=== PATIENT | male | born 1990 | race African-American/Black ===

== ENCOUNTER 2017-04-27 11:18 | Emergency (ER) | payer SELFPAY ==
[~2017-04-27] VITALS: Ht 180.3 cm; Wt 92.7 kg
[~2017-04-27 11:18] MED LIST: (None)3.5 GM OP; AMOXICILLIN500 MG PO; BACTRIM DS1 TAB PO; CEPHALEXIN500 MG PO; FLEXERIL PO; GENTAMICIN15 ML/BTL OP; LORTAB 10-325 M1 TAB PO; NAPROSYN500 MG PO; ULTRAM50 M1 PO
[2017-04-27] MEDS ORDERED: BACTRIM DS1 TAB PO (11:52)
[2017-04-27] MEDS ORDERED: TRAMADOL HYDROC50 MG PO (11:52)
[2017-04-27] MEDS ORDERED: MOTRIN800 MG PO (11:52)
[2017-04-27 12:41] VITALS: BP 135/78
== END 2017-04-27 12:47 | disposition home or self-care (01) | DRG 603 ==
LOC: ED 11:18
PROC: 0H98XZZ Drainage of Buttock Skin, External Approach (ICD-10-PCS; principal; 2017-04-27)
DX: L02.31 Cutaneous abscess of buttock (principal); F17.210 Nicotine dependence, cigarettes, uncomplicated

== ENCOUNTER 2017-09-07 18:02 | Emergency (ER) | payer SELFPAY ==
[~2017-09-07] VITALS: Ht 180.3 cm; Wt 80.0 kg
[~2017-09-07 18:02] MED LIST changes: +MOTRIN800 MG PO; +TRAMADOL HYDROC50 MG PO
[2017-09-07] MEDS ORDERED: AMOXICILLIN500 MG PO (18:25)
[2017-09-07] MEDS ORDERED: PERCOCET 5/325M1 TAB PO (18:25)
[2017-09-07 18:34] VITALS: BP 167/83
== END 2017-09-07 18:40 | disposition home or self-care (01) | DRG 159 ==
LOC: ED 18:02
DX: K08.89 Other specified disorders of teeth and supporting structures (principal); F17.290 Nicotine dependence, other tobacco product, uncomplicated; K02.9 Dental caries, unspecified; S02.5XXA Fracture of tooth (traumatic), initial encounter for closed fracture

== ENCOUNTER 2018-09-26 20:58 | Emergency (ER) | payer SELFPAY ==
[~2018-09-26] VITALS: Ht 180.3 cm; Wt 90.0 kg
[~2018-09-26 20:58] MED LIST changes: +PERCOCET 5/325M1 TAB PO
[2018-09-26 22:13] LABS: HEMATOCRIT 47.3 % (39.0-50.0); HEMOGLOBIN 15.3 g/dl (14.0-18.0); IMMATURE GRANULOCYTES 0.3 % (0.0-5.0); MEAN CELL VOLUME 88.6 fL CALC (80.0-100.0); MEAN CORPUSCULAR HGB 28.7 pG CALC (26.0-32.0); MEAN CORPUSCULAR HGB CONC 32.3 g/L CALC (32.0-36.0); NEUT# 6.64 thou/uL (1.82-7.42); RED BLOOD COUNT 5.34 mill/uL (4.70-6.10); RED CELL DISTRI WIDTH 13.6 % (11.5-15.5)
[2018-09-26 23:10] VITALS: BP 124/77
== END 2018-09-26 23:14 | disposition home or self-care (01) | DRG 866 ==
LOC: ED 20:58
PROVIDERS: Family Medicine
DX: B34.9 Viral infection, unspecified (principal); R53.81 Other malaise; R05 Cough; R09.81 Nasal congestion; R51 Headache; J34.89 Other specified disorders of nose and nasal sinuses; F17.210 Nicotine dependence, cigarettes, uncomplicated

== ENCOUNTER 2019-01-14 10:43 | Emergency (ER) | payer SELFPAY ==
[~2019-01-14] VITALS: Ht 180.3 cm; Wt 65.0 kg
[2019-01-14 10:56] VITALS: BP 152/88
[2019-01-14] MEDS ORDERED: PENICILLN VK500 MG PO (11:01)
[2019-01-14] MEDS ORDERED: IBUPROFEN600 MG PO (11:01)
== END 2019-01-14 11:07 | disposition home or self-care (01) | DRG 159 ==
LOC: ED 10:43
DX: K03.81 Cracked tooth (principal); F17.200 Nicotine dependence, unspecified, uncomplicated

== ENCOUNTER 2019-01-21 20:22 | Emergency (ER) | payer SELFPAY ==
[~2019-01-21] VITALS: Wt 77.0 kg
[~2019-01-21 20:22] MED LIST changes: +IBUPROFEN600 MG PO; +PENICILLN VK500 MG PO
[2019-01-21] MEDS ORDERED: AMOXICILLIN875 MG PO (20:46)
[2019-01-22 00:01] VITALS: BP 130/80
== END 2019-01-22 00:01 | disposition home or self-care (01) | DRG 544 ==
LOC: ED 20:22
DX: M84.68XA Pathological fracture in other disease, other site, initial encounter for fracture (principal); K02.9 Dental caries, unspecified; K05.10 Chronic gingivitis, plaque induced; F17.210 Nicotine dependence, cigarettes, uncomplicated; R03.0 Elevated blood-pressure reading, without diagnosis of hypertension
CPT/HCPCS: J0561

== ENCOUNTER 2019-08-05 | Emergency (ER) | payer BC ==
[~2019-08-05] MED LIST changes: +AMOXICILLIN875 MG PO
[2019-08-05] MEDS ORDERED: IBUPROFEN600 MG PO (03:59)
[2019-08-05] MEDS ORDERED: KEFLEX500 MG PO (03:59)
== END 2019-08-05 04:14 | disposition home or self-care (01) | DRG 159 ==
DX: K02.9 Dental caries, unspecified (principal); F17.210 Nicotine dependence, cigarettes, uncomplicated

== ENCOUNTER 2020-11-08 07:41 | Emergency (ER) | payer SELFPAY ==
[~2020-11-08] VITALS: Ht 180.3 cm; Wt 70.0 kg
[~2020-11-08 07:41] MED LIST changes: +KEFLEX500 MG PO
[2020-11-08] MEDS ORDERED: AMOXICILLIN500 MG PO (09:52)
[2020-11-08] MEDS ORDERED: CLARITIN10 M1 PO (09:52)
[2020-11-08 10:00] VITALS: BP 118/70
== END 2020-11-08 10:04 | disposition home or self-care (01) | DRG 153 ==
LOC: ED 07:41
DX: J06.9 Acute upper respiratory infection, unspecified (principal); F17.200 Nicotine dependence, unspecified, uncomplicated; Z20.822 Contact with and (suspected) exposure to COVID-19

== ENCOUNTER 2020-12-26 09:54 | Emergency (ER) | payer SELFPAY ==
[~2020-12-26 09:54] MED LIST changes: +CLARITIN10 M1 PO
== END 2020-12-26 10:39 | disposition left against medical advice (07) | DRG 951 ==
LOC: ED 09:54 → LWOBS 10:34
DX: Z53.21 Procedure and treatment not carried out due to patient leaving prior to being seen by health care provider (principal)

== ENCOUNTER 2020-12-29 17:35 | Emergency (ER) | payer SELFPAY ==
[2020-12-29] MEDS ORDERED: KEFLEX500 MG PO ×2 (18:40→19:37)
[2020-12-29 18:45] VITALS: BP 142/80
--- NOTE | 2020-12-31 15:36 | NUR ---
AFTER REVIEWING FINAL WOUND CULTURE RESULTS, RECOMMEND TO DC CEPHALEXIN AND START BACTRIM DS. DR. WANG SAYS OK. CALLED AND INFORMED THE PT. CALLED IN A RX FOR BACTRIM DS AT [facility].
== END 2020-12-29 18:45 | disposition home or self-care (01) | DRG 603 ==
LOC: ED 17:35
DX: L08.9 Local infection of the skin and subcutaneous tissue, unspecified (principal); S81.812A Laceration without foreign body, left lower leg, initial encounter; B96.89 Other specified bacterial agents as the cause of diseases classified elsewhere; F17.200 Nicotine dependence, unspecified, uncomplicated; V86.56XA Driver of dirt bike or motor/cross bike injured in nontraffic accident, initial encounter

== ENCOUNTER 2021-01-01 11:19 | Emergency (ER) | payer SELFPAY ==
[~2021-01-01] VITALS: Ht 180.3 cm; Wt 76.0 kg
[2021-01-01] MEDS ORDERED: BACTRIM DS1 TAB PO (11:47)
[2021-01-01 12:00] VITALS: BP 112/76
== END 2021-01-01 12:00 | disposition home or self-care (01) | DRG 950 ==
LOC: ED 11:19
DX: S81.812D Laceration without foreign body, left lower leg, subsequent encounter (principal); L08.9 Local infection of the skin and subcutaneous tissue, unspecified; F17.290 Nicotine dependence, other tobacco product, uncomplicated; V86.99XD Unspecified occupant of other special all-terrain or other off-road motor vehicle injured in nontraffic accident, subsequent encounter